=== PATIENT | male | born 1970 | race Two or more races ===

== ENCOUNTER 2024-05-23 16:23 | Emergency (ER) | payer SELFPAY ==
[2024-05-23] MEDS: Acetaminophen/HYDROcodone 325-5 MG Tab PO ONE (16:50)
[2024-05-23] MEDS: Ketorolac 30 MG/ML SDV IM ONE (16:50)
[2024-05-23] MEDS: Cyclobenzaprine 10 MG Tab PO ONE (16:50)
== END 2024-05-23 18:26 | disposition home or self-care (01) ==
LOC: JD.ED 16:23
DX: M54.50 Low back pain, unspecified (principal); F17.210 Nicotine dependence, cigarettes, uncomplicated; Z79.899 Other long term (current) drug therapy
CPT/HCPCS: 72100; 72100-26; 96372; 99283; A9270-GY; J1885

== ENCOUNTER 2025-08-17 08:52 | Emergency (ER) | payer SELFPAY ==
[2025-08-17] MEDS: Ketorolac 60 MG/2 ML SDV IM ONE (09:53)
== END 2025-08-17 10:33 | disposition home or self-care (01) ==
LOC: JD.ED 08:52
DX: M54.50 Low back pain, unspecified (principal); F17.200 Nicotine dependence, unspecified, uncomplicated; Z86.16 Personal history of COVID-19
CPT/HCPCS: 72148; 96372; 99283; A9270; J1885; 99284; J1171